=== PATIENT | male | born 1970 | race African-American/Black ===

== ENCOUNTER 2018-03-04 10:42 | Inpatient (IN) | payer BC ==
[2018-03-04 11:13] VITALS: BMI 20.5
--- NOTE | 2018-03-04 12:46 | HP ---
COWS - Scale Resting Pulse: 0= TN 80 or Below Sweatin= Chills/Flushing Restless Observation: 1= Difficult to Sit Still Pupil Size: 1= Pupils >than Normal Bone or Joint Aches: 2= Severe Diffuse Aches Runny Nose/ Eye Tearin= Runny Nose/Eyes GI Upset > 30mins: 2= Nausea/Diarrhea Tremor Observation: 2= Slight Tremor Visible Yawning Observation: 1= 1-2x During Session Anxiety or Irritability: 2=Irritable/Anxious Goose Flesh Skin: 0=Smooth Skin COWS Score: 14 CIWA Score Nausea/Vomitin Muscle Tremors: 2 Anxiety: 2 Agitation: 2 Paroxysmal Sweats: 1-Minimal Palms Moist Orientation: 0-Oriented Tacttile Disturbances: 1-Very Mild Itch/Numbness Auditory Disturbances: 1-Very Mild Visual Disturbances: 0-None Headache: 2-Mild CIWA-Ar Total Score: 13 - Admission Criteria OASAS Guidelines: Admission for Medically Managed Detox: Requires at least one of the followin. CIWA greater than 12 2. Seizures within the past 24 hours 3. Delirium tremens within the past 24 hours 4. Hallucinations within the past 24 hours 5. Acute intervention needed for co occurring medical disorder 6. Acute intervention needed for co occurring psychiatric disorder 7. Severe withdrawal that cannot be handled at a lower level of care (continued vomiting, continued diarrhea, abnormal vital signs) requiring intravenous medication and/or fluids 8. Patient presents the following: CIWA greater than 12 Admission Criteria Met: Admission criteria met Admission ROS [facility] Chief Complaint: i need help to stop using heroin,alcohol,cocaine and marijuana Allergies/Adverse Reactions: Allergies Allergy/AdvReac Type Severity Reaction Status Date / Time No Known Drug Allergies Allergy Verified 03/05/18 00:22 Fish Containing Products AdvReac Intermediate Vomiting Verified 03/05/18 00:22 History of Present Illness: this 47 years old male with heroin,alcohol,cocaine and marijuana dependence, seeking detox,withdrawal symptom,last detox 11/24/17 to 11/28/17 seizure syncope hepatitis b nicotine dependence weight loss depression,insomnia,bipolar disorder longest period of sobriety 4 years hiv noncompliance - Ebola screening Have you traveled outside of the country in the last 21 days: No Have you had contact with anyone from an Ebola affected area: No Have you been sick,other than usual withdrawal symptoms: No Do you have a fever: No - Review of Systems Constitutional: Chills, Loss of Appetite, Malaise, Night Sweats, Changes in sleep, Weakness, Unintentional Wgt. Loss EENT: reports: Tearing, Nose Congestion Respiratory: reports: No Symptoms reported Cardiac: reports: No Symptoms Reported GI: reports: Nausea, Poor Appetite, Vomiting, Abdominal cramping : reports: No Symptoms Reported Musculoskeletal: reports: Back Pain, Joint Pain, Muscle Pain, Joint Stiffness Integumentary: reports: Dryness Neuro: reports: No Symptoms reported, Headache, Tremors Endocrine: reports: No Symptoms Reported Hematology: reports: No Symptoms Reported Psychiatric: reports: No Sypmtoms Reported, Judgement Intact, Mood/Affect Appropiate, Orientated x3, Anxious (bipolar disorder), Depressed Patient History - Patient Medical History Hx Anemia: No Hx Asthma: Yes (Pt is on MDI) Hx Chronic Obstructive Pulmonary Disease (COPD): Yes Hx Cancer: No Hx Cardiac Disorders: No Hx Congestive Heart Failure: No Hx Hypertension: No Hx Hypercholesterolemia: No Hx Pacemaker: No HX Cerebrovascular Accident: No Hx Seizures: Yes (11/2016) Hx Dementia: No Hx Diabetes: No Hx Gastrointestinal Disorders: No Hx Liver Disease: No Hx Genitourinary Disorders: No Hx Sexually Transmitted Disorders: No Hx Renal Disease (ESRD): No Hx Thyroid Disease: No Hx Human Immunodeficiency Virus (HIV): Yes (on Triumeq ) Hx Hepatitis C: No Hx Depression: Yes Hx Suicide Attempt: No Hx Bipolar Disorder: No Hx Schizophrenia: No Other Medical History: no suicidal,no homicidal - Patient Surgical History Past Surgical History: No Hx Neurologic Surgery: No Hx Cataract Extraction: No Hx Cardiac Surgery: No Hx Lung Surgery: No Hx Breast Surgery: No Hx Breast Biopsy: No Hx Abdominal Surgery: No Hx Appendectomy: No Hx Cholecystectomy: No Hx Genitourinary Surgery: No Hx Orthopedic Surgery: No Anesthesia Reaction: No - PPD History Previous Implant?: Yes Documented Results: Negative w/proof Implanted On Prior R Admission?: Yes Date: 11/26/17 Results: 0 mm PPD to be Administered?: No - Smoking Cessation Smoking history: Current every day smoker Have you smoked in the past 12 months: Yes Aproximately how many cigarettes per day: 5 Cigars Per Day: 0 Hx Chewing Tobacco Use: No Initiated information on smoking cessation: Yes 'Breaking Loose' booklet given: 03/04/18 - Substance & Tx. History Hx Alcohol Use: Yes Hx Substance Use: Yes Substance Use Type: Alcohol, Cocaine, Heroin, Marijuana Hx Substance Use Treatment: Yes ([facility] 11/24/17 to 11/28/17) - Substances Abused Heroin Route: Inhalation Frequency: Daily Amount used: 1 BUNDLE Age of first use: 24 Date of Last Use: 03/03/18 Crack Route: Smoking Frequency: 3-6 times per week Amount used: $50 Age of first use: 19 Date of Last Use: 03/01/18 Alcohol Route: Smoking Frequency: Daily Amount used: 1 PINT OF KALEB, 5 16 OZ CANS OF BEERS Age of first use: 17 Date of Last Use: 03/03/18 Marijuana/Hashish Route: Smoking Frequency: Daily Amount used: 1/8 OF AN OUNCE Age of first use: 8 Date of Last Use: 03/02/18 Family Disease History - Family Disease History Family Disease History: Diabetes: Grandparent, Other: Father (alcohol,sober) Admission Physical Exam [facility] - Vital Signs Vital Signs: Vital Signs - 24 hr 03/04/18 11:09 Temperature 96.4 F L Pulse Rate 68 Respiratory 16 Rate Blood Pressure 140/94 - Physical General Appearance: Yes: Moderate Distress, Tremorous, Irritable, Sweating, Anxious HEENTM: Yes: Normal ENT Inspection, JACKIE, Pharynx Normal Respiratory: Yes: Lungs Clear, Normal Breath Sounds, No Respiratory Distress Neck: Yes: Within Normal Limits, No masses,lesions,Nodules, Supple, Trachea in good position Breast: Yes: Within Normal Limits Cardiology: Yes: Within Normal Limits, Regular Rhythm, Regular Rate, S1, S2 Abdominal: Yes: Within Normal Limits, Normal Bowel Sounds, Non Tender, Soft Genitourinary: Yes: Within Normal Limits Back: Yes: Normal Inspection, Muscle Spasm Musculoskeletal: Yes: full range of Motion, Back pain, Muscle Pain Extremities: Yes: Within Normal Limits, Normal Range of Motion, Tremors 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 NML intact, Alert, Motor Strength 5/5 Integumentary: Yes: Dry Lymphatic: Yes: Within Normal Limits - Diagnostic (1) Opioid dependence with withdrawal Current Visit: No Status: Acute (2) Alcohol dependence with withdrawal, uncomplicated Current Visit: No Status: Acute (3) Cocaine dependence Current Visit: No Status: Acute Qualifiers: Substance use status: uncomplicated Qualified Code(s): F14.20 - Cocaine dependence, uncomplicated (4) Marijuana dependence Current Visit: No Status: Chronic (5) Weight loss Current Visit: No Status: Acute (6) Asthma Current Visit: No Status: Chronic Qualifiers: Asthma severity: mild persistent Asthma complication type: with status asthmaticus (7) HIV (human immunodeficiency virus infection) Current Visit: No Status: Chronic Comment: ATRIPLA (8) Nicotine dependence Current Visit: No Status: Chronic Qualifiers: Nicotine product type: cigarettes Substance use status: uncomplicated Qualified Code(s): F17.210 - Nicotine dependence, cigarettes, uncomplicated (9) Seizure Current Visit: No Status: Chronic Comment: KEPPRA LEVEL PENDING (10) Bipolar disorder Current Visit: Yes Status: Acute Cleared for Admission [facility] - Detox or Rehab S Level of Care: Medically Managed Detox Regimen/Protocol: Methadone/Librium [facility] Breath Alcohol Content Breath Alcohol Content: 0 Urine Drug Screen - Results Drug Screen Negative: No Urine Drug Screen Results: THC-Marijuana, OPI-Opiates, OXY-Oxycodone, FEN- Fentanyl
[2018-03-04] MEDS ORDERED: MAGNESIUM CITRATE 300 ML BOTTLE PO PRN (13:05)
[2018-03-04] MEDS ORDERED: LOPERAMIDE HCL 2 MG CAPSULE PO PRN (13:05)
[2018-03-04] MEDS ORDERED: MAG HYDROX/AL HYDROX/SIMETH 30 ML UNIT-DOSE CUP PO PRN (13:05)
[2018-03-04] MEDS ORDERED: IBUPROFEN 400 MG TABLET (FP) PO PRN (13:05)
[2018-03-04] MEDS ORDERED: ACETAMINOPHEN 325 MG TABLET (FP) PO PRN (13:05)
[2018-03-04] MEDS ORDERED: MENTHOL/PHENOL 1 EACH UD MM PRN (13:05)
[2018-03-04] MEDS ORDERED: guaiFENesin/D-METHORPHAN HB 10 ML UNIT-DOSE CUPS PO PRN (13:05)
[2018-03-04] MEDS ORDERED: P-EPHED 60MG/TRIPROLIDI 2.5MG TABLET PO PRN (13:05)
[2018-03-04] MEDS ORDERED: MAGNESIUM HYDROX 2400MG/30ML ORAL SUSPENSION 30 ML CUP PO PRN (13:05)
[2018-03-04] MEDS ORDERED: ALBUTEROL SO4 8 GM HFA INHALER IH PRN (13:09)
[2018-03-04] MEDS ORDERED: METHADONE HCL 10 MG TABLET (FOR DETOX USE ONLY) PO ONE ×2 (13:25→23:00)
[2018-03-04] MEDS: NICOTINE 14 MG/24 HOURS TOPICAL PATCH TD SCH (14:46)
--- NOTE | 2018-03-04 17:33 | PN ---
[facility] Progress Note Note: Psychiatric nurse practitioner note: Unable to complete psychiatric consultation due to patient falling asleep during assessment. Psychiatric consultation deferred.
[2018-03-04] MEDS: chlordiazePOXIDE HCL 25 MG CAPSULE PO SCH ×2 (17:47→22:43)
[2018-03-04] MEDS ORDERED: MELATONIN 5 MG TABLETS PO PRN (22:00)
[2018-03-04] MEDS: levETIRAcetam 500 MG TABLET (FP) PO SCH (22:43)
[2018-03-04] MEDS: THIAMINE HCL 100 MG TABLET (FP) PO SCH (22:44)
[2018-03-04] MEDS: BUDESONIDE/FORMETEROL FUMARATE 80/4.5 mcg INHALER IH SCH (22:45)
--- NOTE | 2018-03-04 23:54 | PN ---
[facility] Progress Note Note: ASKED TO SEE CLIENT FOR INJURY TO R FOOT. CLIENT STATES HE HIT HIS R FOURTH TOE ON THE CORNER OF A DOOR. NOW WITH C/O PAIN 7/10, SWELLING AND DECREASE MOVEMENT. R FOOT- 4TH DIGIT NOTED WITH SWELLING, TENDER TO TOUCH WITH LIMITED ROM Last Vital Signs Temp Pulse Resp BP Pulse Ox 97.5 F L 77 18 127/74 03/04/18 23:30 03/04/18 23:30 03/04/18 23:30 03/04/18 23:30 R FOOT 4 TH DIGIT INJURY P- MOTRIN ICE COMPRESS TRANSFER TO [facility] FOR XRAY OF R 4TH TOE OF RIGHT FOOT UNSUCCESSFUL ATTEMPT TO ENDORSE CLIENT TO [facility]
[2018-03-05 00:04] LABS: URINE APPEARANCE CLEAR; URINE BILIRUBIN NEGATIVE (<2.0 mg/dL); URINE COLOR LTYELLOW; URINE GLUCOSE (UA) NEGATIVE (NEGATIVE); URINE KETONE NEGATIVE (NEGATIVE); URINE LEUK ESTERASE NEGATIVE (NEGATIVE); URINE NITRITE NEGATIVE (NEGATIVE); URINE PROTEIN NEGATIVE (NEGATIVE); URINE UROBILINOGEN NEGATIVE mg/dL (0.2-1.0)
[2018-03-05] MEDS: chlordiazePOXIDE HCL 25 MG CAPSULE PO SCH ×4 (05:29→22:28)
--- NOTE | 2018-03-05 07:35 | PN ---
[facility] Progress Note Note: RETURNS FROM [facility] AFTER EVAL OF R FOOT 4TH TOE PAIN AFTER INJURY FX OF TOE NOTED. MOTRIN/TYLENOL FOR PAIN CANE FOR ASSIST WITH AMBULATION Medical Decision Making - Medical Decision Making 03/05/18 01:53 XR findings d/w patient. Toes were yoselin taped and a hard-soled shoe placed. Stable for DC and transfer back to [facility]. <Marisa Nuñez - Last Filed: 03/05/18 01:54> *DC/Admit/Observation/Transfer - Attestations Scribe Attestion: 03/05/18 01:02 Documentation prepared by Kayy Arcos, acting as medical hospital sales for Marisa Nuñez MD. <Kayy Arcos - Last Filed: 03/05/18 01:03> - Discharge Dispostion Decision to Admit order: No <Marisa Nuñez - Last Filed: 03/05/18 01:54> Diagnosis at time of Disposition: Toe fracture Qualifiers: Encounter type: initial encounter Toe: lesser toe Fracture type: closed Phalanx : proximal Fracture alignment: nondisplaced Laterality: right Qualified Code(s) : S92.514A - Nondisplaced fracture of proximal phalanx of right lesser toe(s), initial encounter for closed fracture - Discharge Dispostion Disposition: HOME Condition at time of disposition: Stable - Referrals Referrals: Kelly Cross DO [Primary Care Provider] - - Patient Instructions Printed Discharge Instructions: DI for Toe Fracture - Post Discharge Activity
[2018-03-05] MEDS: chlordiazePOXIDE HCL 25 MG CAPSULE PO PRN ×2 (08:40→14:51)
--- NOTE | 2018-03-05 09:55 | CONSULT ---
[facility] Psychiatric Consult - Data Date of interview: 03/05/18 Admission source: Self-referred Identifying data: Mr Bush is a 47 years old single Black male, father of 3 childre,.unemployed on [employer], domiciled seeking detox treatment for alcohol, opioid, cocaine and cannabis Substance Abuse History: Reports history of alcohol, heroin, cocaine and marijuana use. Refer to addiction counselor's summary for further information. Medical History: Significant for COPD/bronchial asthma, HIV infection, seizure disorder (on keppra), hepatitis B and arthritis. Smokes 5 cigarettes daily Psychiatric History: Reports being diagnosed with Bipolar Disorder and has had 3 previous psychiatric hospitaalizations at [facility], most recently more than 5 years ago. Reports receiving psychiatric services at [facility] and he is prescribed Seroquel 30 mg po BID, Zoloft 50 mg po daily and Ambien 10 mg po HS. According to Pharmacy claims, most recent scripts were for Ambien 10 mg#30 by Rodriguez Batista filled on 01/03/18 and Seroquel 100 mg #30, Remeron 15 mg #30, Zoloft 50 mg #30 by [facility] Espinoza filled on 11/29/17 when he was last in detox in this facility. [facility] x1 by OD in 1996. At present, patient is extremely irritable, reports feeling anxious and sleeping poorly and sleeping poorly Physical/Sexual Abuse/Trauma History: Denies Additional Comment: Reports history of 2 previous arrests iincluding felony convictions on charges of assault in 2003 and drug in . No probation.parole Mental Status Exam - Mental Status Exam Alert and Oriented to: Time, Place, Person Cognitive Function: Fair Patient Appearance: Well Groomed Mood: Anxious, Irritable Affect: Appropriate Speech Pattern: Garbled Voice Loudness: Normal Thought Process: Intact, Goal Oriented Thought Disorder: Not Present Suicidal Ideation: Denies Homicidal Ideation: Denies Insight/Judgement: Fair Sleep: Poorly Appetite: Poor Muscle strength/Tone: Normal Gait/Station: Normal Psychiatric Findings - Problem List (Lyman 1, 2,3) (1) Bipolar disorder Current Visit: No Status: Chronic (2) Substance induced mood disorder Current Visit: Yes Status: Acute (3) Substance-induced sleep disorder Current Visit: No Status: Acute (4) Alcohol dependence with withdrawal, uncomplicated Current Visit: No Status: Acute (5) Opioid dependence with withdrawal Current Visit: No Status: Acute (6) Cocaine dependence Current Visit: No Status: Acute Qualifiers: Substance use status: uncomplicated Qualified Code(s): F14.20 - Cocaine dependence, uncomplicated (7) Cannabis dependence Current Visit: Yes Status: Acute (8) Nicotine dependence Current Visit: No Status: Chronic Qualifiers: Nicotine product type: cigarettes Substance use status: uncomplicated Qualified Code(s): F17.210 - Nicotine dependence, cigarettes, uncomplicated (9) Toe fracture Current Visit: No Status: Acute Qualifiers: Encounter type: initial encounter Toe: lesser toe Fracture type: closed Phalanx: proximal Fracture alignment: nondisplaced Laterality: right Qualified Code(s): S92.514A - Nondisplaced fracture of proximal phalanx of right lesser toe(s), initial encounter for closed fracture (10) Asthma Current Visit: No Status: Chronic Qualifiers: Asthma severity: mild persistent Asthma complication type: with status asthmaticus (11) HIV (human immunodeficiency virus infection) Current Visit: No Status: Chronic Comment: ATRIPLA (12) Seizure Current Visit: No Status: Chronic Comment: KEPPRA LEVEL PENDING - Initial Treatment Plan Initial Treatment Plan: 1) Start Seroquel 100 mg po HS, Zoloft 50 mg po daily. 2) Continue inpatient detoxification
[2018-03-05] MEDS ORDERED: METHADONE HCL 10 MG TABLET (FOR DETOX USE ONLY) PO SCH (10:00)
--- NOTE | 2018-03-05 10:07 | PN ---
[facility] CIWA - CIWA Score Nausea/Vomitin-No Nausea/No Vomiting Muscle Tremors: 4-Moderate,w/Arms Extend Anxiety: 3 Agitation: 3 Paroxysmal Sweats: 3 Orientation: 0-Oriented Tacttile Disturbances: 0-None Auditory Disturbances: 0-None Visual Disturbances: 0-None Headache: 0-None Present CIWA-Ar Total Score: 13 [facility] COWS - Scale Resting Pulse: 0= [place] 80 or Below Sweatin=Flushed/Facial Moisture Restless Observation: 1= Difficult to Sit Still Pupil Size: 0= Normal to Room Light Bone or Joint Aches: 2= Severe Diffuse Aches Runny Nose/ Eye Tearin= Nasal Congestion GI Upset > 30mins: 0= None Tremor Observation of Outstretched Hands: 2= Slight Tremor Visible Yawning Observation: 1= 1-2x During Session Anxiety or Irritability: 1=Feels Anxious/Irritable Goose Flesh Skin: 0=Smooth Skin COWS Score: 10 [facility] Progress Note (SOAP) Subjective: agitation sweats mild shakes irritable some toe pain/discomfort Objective: 03/05/18 10:15 Laboratory Tests 03/04/18 23:45 Urine Color Ltyellow Urine Appearance Clear Urine pH 6.0 Ur Specific [place] 1.023 Urine Protein Negative Urine Glucose (UA) Negative Urine Ketones Negative Urine Blood Negative Urine Nitrite Negative Urine Bilirubin Negative Urine Urobilinogen Negative Ur Leukocyte Esterase Negative rest of labs were drawn at [facility]; results are pending aax3 ambulating with cane and boot. pt is walking safely no acute distress Assessment: 03/05/18 10:15 withdrawals sx Plan: continue detox increase fluids
[2018-03-05] MEDS: NICOTINE 14 MG/24 HOURS TOPICAL PATCH TD SCH (10:16)
[2018-03-05] MEDS: BUDESONIDE/FORMETEROL FUMARATE 80/4.5 mcg INHALER IH SCH ×2 (10:16→22:28)
[2018-03-05] MEDS: levETIRAcetam 500 MG TABLET (FP) PO SCH ×2 (10:16→22:28)
[2018-03-05] MEDS: PRENATAL VITAMINS W/ FOLIC ACID TABLET (FP) PO SCH (10:16)
[2018-03-05 10:24] LABS: HEMATOCRIT 36.1 % (35.4-49); HEMOGLOBIN 12.6 GM/dL (11.7-16.9); MCH 31.3 pg (25.7-33.7); MCHC 34.9 g/dl (32.0-35.9); MEAN CELL VOLUME 89.6 fl (80-96); PLATELET COUNT 217 K/MM3 (134-434); RBC 4.03 M/mm3 (4.00-5.60); RDW 14.1 % (11.9-15.9); WHITE BLOOD COUNT 3.5 K/mm3 (4.0-10.0)
[2018-03-05 10:46] LABS: ALBUMIN 3.8 g/dl (3.4-5.0); ALK PHOS 79 U/L (45-117); ANION GAP 10 MMOL/L (8-16); BILIRUBIN,TOTAL 0.4 mg/dL (0.2-1); BLOOD UREA NITROGEN 24 mg/dL (7-18); CALCIUM 8.6 mg/dL (8.5-10.1); CHLORIDE 102 mmol/L (98-107); CO2 28 mmol/L (21-32); CREATININE 1.4 mg/dL (0.55-1.3); GLUCOSE,RANDOM 83 mg/dL (74-106); POTASSIUM 3.9 mmol/L (3.5-5.1); SGOT/AST 26 U/L (15-37); SGPT/ALT 27 U/L (13-61); SODIUM 140 mmol/L (136-145)
[2018-03-05] MEDS: SERTRALINE HCL 50 MG TABLET (FP) PO SCH (10:58)
[2018-03-05] MEDS ORDERED: FLU VACCINE QUAD 60 MCG/0.5 ML (MDV 18-19) IM ONE (12:00)
[2018-03-05] MEDS: IBUPROFEN 400 MG TABLET (FP) PO PRN ×2 (14:50→22:28)
[2018-03-05] MEDS: QUEtiapine FUMARATE 100 MG TABLET (FP) PO SCH (22:28)
[2018-03-05] MEDS: THIAMINE HCL 100 MG TABLET (FP) PO SCH (22:28)
[2018-03-06] MEDS: chlordiazePOXIDE HCL 25 MG CAPSULE PO SCH ×2 (07:02→10:05)
[2018-03-06] MEDS: IBUPROFEN 400 MG TABLET (FP) PO PRN (07:02)
[2018-03-06] MEDS: levETIRAcetam 500 MG TABLET (FP) PO SCH ×2 (10:05→23:51)
[2018-03-06] MEDS: NICOTINE 14 MG/24 HOURS TOPICAL PATCH TD SCH (10:05)
[2018-03-06] MEDS: METHADONE HCL 5 MG TABLET (FOR DETOX USE ONLY) PO SCH (10:05)
[2018-03-06] MEDS: SERTRALINE HCL 50 MG TABLET (FP) PO SCH (10:05)
[2018-03-06] MEDS: BUDESONIDE/FORMETEROL FUMARATE 80/4.5 mcg INHALER IH SCH ×2 (10:05→23:51)
[2018-03-06] MEDS: PRENATAL VITAMINS W/ FOLIC ACID TABLET (FP) PO SCH (10:05)
--- NOTE | 2018-03-06 12:08 | PN ---
[facility] CIWA - CIWA Score Nausea/Vomitin-No Nausea/No Vomiting Muscle Tremors: 3 Anxiety: 3 Agitation: 3 Paroxysmal Sweats: 3 Orientation: 0-Oriented Tacttile Disturbances: 0-None Auditory Disturbances: 0-None Visual Disturbances: 0-None Headache: 0-None Present CIWA-Ar Total Score: 12 [facility] COWS - Scale Resting Pulse: 0= [place] 80 or Below Sweatin=Flushed/Facial Moisture Restless Observation: 1= Difficult to Sit Still Pupil Size: 0= Normal to Room Light Bone or Joint Aches: 2= Severe Diffuse Aches Runny Nose/ Eye Tearin= Runny Nose/Eyes GI Upset > 30mins: 0= None Tremor Observation of Outstretched Hands: 1= Tremor [place], Not Seen Yawning Observation: 0= None Anxiety or Irritability: 2=Irritable/Anxious Goose Flesh Skin: 0=Smooth Skin COWS Score: 10 S Progress Note (SOAP) Subjective: shakes sweats chills toe pain/discomfort interrupted sleep irritable Objective: 03/06/18 12:06 Vital Signs Temperature 98.3 F 03/06/18 09:19 Pulse Rate 79 03/06/18 09:19 Respiratory Rate 18 03/06/18 09:19 Blood Pressure 111/62 03/06/18 09:19 O2 Sat by Pulse Oximetry (%) Laboratory Tests 03/04/18 03/05/18 03/05/18 23:45 05:40 05:40 WBC 3.5 L RBC 4.03 Hgb 12.6 Hct 36.1 MCV 89.6 MCH 31.3 MCHC 34.9 RDW 14.1 Plt Count 217 D MPV 9.0 Sodium 140 Potassium 3.9 Chloride 102 Carbon Dioxide 28 Anion Gap 10 BUN 24 H Creatinine 1.4 H Creat Clearance w eGFR 54.09 Random Glucose 83 Calcium 8.6 Total Bilirubin 0.4 AST 26 ALT 27 Alkaline Phosphatase 79 Total Protein 8.0 Albumin 3.8 Urine Color Ltyellow Urine Appearance Clear Urine pH 6.0 Ur Specific [place] 1.023 Urine Protein Negative Urine Glucose (UA) Negative Urine Ketones Negative Urine Blood Negative Urine Nitrite Negative Urine Bilirubin Negative Urine Urobilinogen Negative Ur Leukocyte Esterase Negative RPR Titer 03/05/18 05:40 WBC RBC Hgb Hct MCV MCH MCHC RDW Plt Count MPV Sodium Potassium Chloride Carbon Dioxide Anion Gap BUN Creatinine Creat Clearance w eGFR Random Glucose Calcium Total Bilirubin AST ALT Alkaline Phosphatase Total Protein Albumin Urine Color Urine Appearance Urine pH Ur Specific [place] Urine Protein Urine Glucose (UA) Urine Ketones Urine Blood Urine Nitrite Urine Bilirubin Urine Urobilinogen Ur Leukocyte Esterase RPR Titer Nonreactive aaox3 ambulating no acute distress Assessment: 03/06/18 12:07 withdrawal sx Plan: continue detox increase fluids motrin 800mg prn encouraged keep leg with foot boot elevated.
[2018-03-06] MEDS: chlordiazePOXIDE 5 MG CAPSULE PO SCH ×2 (21:31→23:50)
--- NOTE | 2018-03-06 21:32 | PN ---
[facility] Progress Note Note: Patient is confused. Patient is not oriented to place and time. On assessment, patient states that the name of the President is Mr. James and does not remember the time. Laboratory Last Values WBC 3.5 K/mm3 (4.0-10.0) L 03/05/18 05:40 RBC 4.03 M/mm3 (4.00-5.60) 03/05/18 05:40 Hgb 12.6 GM/dL (11.7-16.9) 03/05/18 05:40 Hct 36.1 % (35.4-49) 03/05/18 05:40 MCV 89.6 fl (80-96) 03/05/18 05:40 MCH 31.3 pg (25.7-33.7) 03/05/18 05:40 MCHC 34.9 g/dl (32.0-35.9) 03/05/18 05:40 RDW 14.1 % (11.9-15.9) 03/05/18 05:40 Plt Count 217 K/MM3 (134-434) D 03/05/18 05:40 MPV 9.0 fl (7.5-11.1) 03/05/18 05:40 Sodium 140 mmol/L (136-145) 03/05/18 05:40 Potassium 3.9 mmol/L (3.5-5.1) 03/05/18 05:40 Chloride 102 mmol/L (98-107) 03/05/18 05:40 Carbon Dioxide 28 mmol/L (21-32) 03/05/18 05:40 Anion Gap 10 MMOL/L (8-16) 03/05/18 05:40 BUN 24 mg/dL (7-18) H 03/05/18 05:40 Creatinine 1.4 mg/dL (0.55-1.3) H 03/05/18 05:40 Creat Clearance w eGFR 54.09 (>60) 03/05/18 05:40 Random Glucose 83 mg/dL (74-106) 03/05/18 05:40 Calcium 8.6 mg/dL (8.5-10.1) 03/05/18 05:40 Total Bilirubin 0.4 mg/dL (0.2-1) 03/05/18 05:40 AST 26 U/L (15-37) 03/05/18 05:40 ALT 27 U/L (13-61) 03/05/18 05:40 Alkaline Phosphatase 79 U/L (45-117) 03/05/18 05:40 Total Protein 8.0 g/dl (6.4-8.2) 03/05/18 05:40 Albumin 3.8 g/dl (3.4-5.0) 03/05/18 05:40 Urine Color Ltyellow 03/04/18 23:45 Urine Appearance Clear 03/04/18 23:45 Urine pH 6.0 (5.0-8.0) 03/04/18 23:45 Ur Specific [place] 1.023 (1.010-1.035) 03/04/18 23:45 Urine Protein Negative (NEGATIVE) 03/04/18 23:45 Urine Glucose (UA) Negative (NEGATIVE) 03/04/18 23:45 Urine Ketones Negative (NEGATIVE) 03/04/18 23:45 Urine Blood Negative (NEGATIVE) 03/04/18 23:45 Urine Nitrite Negative (NEGATIVE) 03/04/18 23:45 Urine Bilirubin Negative (<2.0 mg/dL) 03/04/18 23:45 Urine Urobilinogen Negative mg/dL (0.2-1.0) 03/04/18 23:45 Ur Leukocyte Esterase Negative (NEGATIVE) 03/04/18 23:45 RPR Titer Nonreactive (NONREACTIVE) 03/05/18 05:40 Action: Ammonia level ordered.
[2018-03-06] MEDS: THIAMINE HCL 100 MG TABLET (FP) PO SCH (23:51)
[2018-03-06] MEDS: QUEtiapine FUMARATE 100 MG TABLET (FP) PO SCH (23:51)
[2018-03-07] MEDS: chlordiazePOXIDE 5 MG CAPSULE PO SCH ×2 (06:48→10:50)
--- NOTE | 2018-03-07 12:34 | PN ---
[facility] Progress Note Note: pt assessed, he is a bit more lucid he responded appropriately and stated his name and where he is at this time and place. however pt ammonia level is high ( 101.50) laculose ordered pt agreed to treatment. will reassess and repeat level tomorrow.
--- NOTE | 2018-03-07 12:38 | PN ---
[facility] Progress Note (SOAP) Subjective: sleepy groggy tired Objective: 03/07/18 12:36 Vital Signs Temperature 97.7 F 03/07/18 09:37 Pulse Rate 87 03/07/18 09:37 Respiratory Rate 16 03/07/18 09:37 Blood Pressure 117/51 L 03/07/18 09:37 O2 Sat by Pulse Oximetry (%) Laboratory Tests 03/04/18 03/05/18 03/05/18 23:45 05:40 05:40 WBC 3.5 L RBC 4.03 Hgb 12.6 Hct 36.1 MCV 89.6 MCH 31.3 MCHC 34.9 RDW 14.1 Plt Count 217 D MPV 9.0 Sodium 140 Potassium 3.9 Chloride 102 Carbon Dioxide 28 Anion Gap 10 BUN 24 H Creatinine 1.4 H Creat Clearance w eGFR 54.09 Random Glucose 83 Calcium 8.6 Total Bilirubin 0.4 AST 26 ALT 27 Alkaline Phosphatase 79 Ammonia Total Protein 8.0 Albumin 3.8 Urine Color Ltyellow Urine Appearance Clear Urine pH 6.0 Ur Specific [place] 1.023 Urine Protein Negative Urine Glucose (UA) Negative Urine Ketones Negative Urine Blood Negative Urine Nitrite Negative Urine Bilirubin Negative Urine Urobilinogen Negative Ur Leukocyte Esterase Negative RPR Titer 03/05/18 03/07/18 05:40 07:50 WBC RBC Hgb Hct MCV MCH MCHC RDW Plt Count MPV Sodium Potassium Chloride Carbon Dioxide Anion Gap BUN Creatinine Creat Clearance w eGFR Random Glucose Calcium Total Bilirubin AST ALT Alkaline Phosphatase Ammonia 101.50 H Total Protein Albumin Urine Color Urine Appearance Urine pH Ur Specific [place] Urine Protein Urine Glucose (UA) Urine Ketones Urine Blood Urine Nitrite Urine Bilirubin Urine Urobilinogen Ur Leukocyte Esterase RPR Titer Nonreactive ammonia level result noted laculose ordered fluids encouraged awake/responsive/no confusion noted Assessment: 03/07/18 12:37 no withdrawals noted Plan: increase fluids laculose ordered repeat labs ordered hold detox medication for now
[2018-03-07] MEDS ORDERED: LACTULOSE 20 GM/30 ML UDC (FOR ORAL USE ONLY) PO ONE (13:00)
[2018-03-07] MEDS: LACTULOSE 20 GM/30 ML UDC (FOR ORAL USE ONLY) PO SCH ×3 (13:06→22:39)
[2018-03-07] MEDS: METHADONE HCL 5 MG TABLET (FOR DETOX USE ONLY) PO SCH (13:07)
[2018-03-07] MEDS: PRENATAL VITAMINS W/ FOLIC ACID TABLET (FP) PO SCH (13:07)
[2018-03-07] MEDS: levETIRAcetam 500 MG TABLET (FP) PO SCH ×2 (13:07→22:38)
[2018-03-07] MEDS: SERTRALINE HCL 50 MG TABLET (FP) PO SCH (13:07)
[2018-03-07] MEDS: BUDESONIDE/FORMETEROL FUMARATE 80/4.5 mcg INHALER IH SCH ×2 (13:08→22:37)
[2018-03-07] MEDS: NICOTINE 14 MG/24 HOURS TOPICAL PATCH TD SCH (13:09)
[2018-03-07] MEDS: THIAMINE HCL 100 MG TABLET (FP) PO SCH (22:37)
[2018-03-07] MEDS: IBUPROFEN 400 MG TABLET (FP) PO PRN (22:38)
[2018-03-08] MEDS ORDERED: METHADONE HCL 10 MG TABLET (FOR DETOX USE ONLY) PO SCH (10:00)
[2018-03-08] MEDS: BUDESONIDE/FORMETEROL FUMARATE 80/4.5 mcg INHALER IH SCH ×2 (10:06→22:36)
[2018-03-08] MEDS: levETIRAcetam 500 MG TABLET (FP) PO SCH ×2 (10:06→22:36)
[2018-03-08] MEDS: LACTULOSE 20 GM/30 ML UDC (FOR ORAL USE ONLY) PO SCH ×4 (10:06→22:36)
[2018-03-08] MEDS: SERTRALINE HCL 50 MG TABLET (FP) PO SCH (10:06)
[2018-03-08] MEDS: PRENATAL VITAMINS W/ FOLIC ACID TABLET (FP) PO SCH (10:07)
[2018-03-08] MEDS: NICOTINE 14 MG/24 HOURS TOPICAL PATCH TD SCH (10:08)
--- NOTE | 2018-03-08 10:40 | PN ---
[facility] Progress Note (SOAP) Subjective: feeling better no gi distress no tremor less sweat sleep better at night talking about aftercare with staff Objective: 03/08/18 10:39 Vital Signs Temperature 97.3 F L 03/08/18 09:32 Pulse Rate 71 03/08/18 09:32 Respiratory Rate 18 03/08/18 09:32 Blood Pressure 127/85 03/08/18 09:32 O2 Sat by Pulse Oximetry (%) Laboratory Last Values WBC 3.5 K/mm3 (4.0-10.0) L 03/05/18 05:40 RBC 4.03 M/mm3 (4.00-5.60) 03/05/18 05:40 Hgb 12.6 GM/dL (11.7-16.9) 03/05/18 05:40 Hct 36.1 % (35.4-49) 03/05/18 05:40 MCV 89.6 fl (80-96) 03/05/18 05:40 MCH 31.3 pg (25.7-33.7) 03/05/18 05:40 MCHC 34.9 g/dl (32.0-35.9) 03/05/18 05:40 RDW 14.1 % (11.9-15.9) 03/05/18 05:40 Plt Count 217 K/MM3 (134-434) D 03/05/18 05:40 MPV 9.0 fl (7.5-11.1) 03/05/18 05:40 Sodium 140 mmol/L (136-145) 03/05/18 05:40 Potassium 3.9 mmol/L (3.5-5.1) 03/05/18 05:40 Chloride 102 mmol/L (98-107) 03/05/18 05:40 Carbon Dioxide 28 mmol/L (21-32) 03/05/18 05:40 Anion Gap 10 MMOL/L (8-16) 03/05/18 05:40 BUN 24 mg/dL (7-18) H 03/05/18 05:40 Creatinine 1.4 mg/dL (0.55-1.3) H 03/05/18 05:40 Creat Clearance w eGFR 54.09 (>60) 03/05/18 05:40 Random Glucose 83 mg/dL (74-106) 03/05/18 05:40 Calcium 8.6 mg/dL (8.5-10.1) 03/05/18 05:40 Total Bilirubin 0.4 mg/dL (0.2-1) 03/05/18 05:40 AST 26 U/L (15-37) 03/05/18 05:40 ALT 27 U/L (13-61) 03/05/18 05:40 Alkaline Phosphatase 79 U/L (45-117) 03/05/18 05:40 Ammonia 101.50 umol/L (11-32) H 03/07/18 07:50 Total Protein 8.0 g/dl (6.4-8.2) 03/05/18 05:40 Albumin 3.8 g/dl (3.4-5.0) 03/05/18 05:40 Urine Color Ltyellow 03/04/18 23:45 Urine Appearance Clear 03/04/18 23:45 Urine pH 6.0 (5.0-8.0) 03/04/18 23:45 Ur Specific [place] 1.023 (1.010-1.035) 03/04/18 23:45 Urine Protein Negative (NEGATIVE) 03/04/18 23:45 Urine Glucose (UA) Negative (NEGATIVE) 03/04/18 23:45 Urine Ketones Negative (NEGATIVE) 03/04/18 23:45 Urine Blood Negative (NEGATIVE) 03/04/18 23:45 Urine Nitrite Negative (NEGATIVE) 03/04/18 23:45 Urine Bilirubin Negative (<2.0 mg/dL) 03/04/18 23:45 Urine Urobilinogen Negative mg/dL (0.2-1.0) 03/04/18 23:45 Ur Leukocyte Esterase Negative (NEGATIVE) 03/04/18 23:45 RPR Titer Nonreactive (NONREACTIVE) 03/05/18 05:40 lab noted Assessment: 03/08/18 10:39 mild withdrawal sx Plan: medically supervised detox
[2018-03-08] MEDS: chlordiazePOXIDE HCL 10 MG CAPSULE PO SCH ×3 (11:08→23:11)
[2018-03-08] MEDS: IBUPROFEN 400 MG TABLET (FP) PO PRN (20:24)
[2018-03-08] MEDS: THIAMINE HCL 100 MG TABLET (FP) PO SCH (22:36)
[2018-03-08] MEDS: QUEtiapine FUMARATE 100 MG TABLET (FP) PO SCH (23:12)
[2018-03-09] MEDS: IBUPROFEN 400 MG TABLET (FP) PO PRN (05:35)
[2018-03-09] MEDS ORDERED: METHADONE HCL 5 MG TABLET (FOR DETOX USE ONLY) PO SCH (06:00)
[2018-03-09] MEDS: chlordiazePOXIDE HCL 10 MG CAPSULE PO SCH (06:08)
[2018-03-09 09:13] VITALS: BP 112/65; PULSE 81; TEMP 97.7
--- NOTE | 2018-03-09 09:15 | DS ---
[facility] Detox Discharge Summary Admission Date: 03/04/18 Discharge Date: 03/09/18 - History Present History: Alcohol Dependence, Cannabis Dependence, Cocaine Dependence, Opioid Dependence - Physical Exam Results Vital Signs: Vital Signs Temperature 97.3 F L 03/09/18 06:00 Pulse Rate 74 03/09/18 06:00 Respiratory Rate 18 03/09/18 06:00 Blood Pressure 124/80 03/09/18 06:00 O2 Sat by Pulse Oximetry (%) - Treatment Hospital Course: Detox Protocol Followed, Detoxed Safely, Responded well, Discharged Condition Good, Rehab Referral Accepted - Medication Discharge Medications: Ambulatory Orders Abacavir/Dolutegravir/Lamivudi [Triumeq 600-50-300 mg Tablet] 1 tab PO HS Dronabinol 10 mg PO DAILY PRN 11/24/17 Quetiapine Fumarate [Seroquel -] 300 mg PO BID 11/24/17 Zolpidem Tartrate [Ambien] 10 mg PO HS 11/24/17 Mirtazapine [Remeron -] 15 mg PO HS #30 tablet 11/28/17 Sertraline HCl [Zoloft -] 50 mg PO DAILY #30 tablet 11/28/17 Abacavir/Dolutegravir/Lamivudi [Triumeq 600-50-300 mg Tablet] 1 tablet PO HS Albuterol Sulfate Inhaler - [Ventolin HFA Inhaler -] 2 inh IH Q4H PRN #1 inhaler 03/08/18 Budesonide/Formeterol Fumarate [SYMBICORT 80/4.5mcg -] 2 puff IH BID #1 inhaler 03/08/18 Lactulose (Oral Use) [Cephulac -] 20 gm PO QID #90 udc 03/08/18 levETIRAcetam [Keppra -] 500 mg PO BID #60 tablet 03/08/18 - Diagnosis (1) Bipolar disorder Current Visit: Yes Status: Chronic (2) Cannabis dependence Current Visit: Yes Status: Chronic (3) Substance induced mood disorder Current Visit: Yes Status: Acute (4) Alcohol dependence with withdrawal, uncomplicated Current Visit: Yes Status: Chronic (5) Cocaine dependence Current Visit: Yes Status: Chronic Qualifiers: Substance use status: uncomplicated Qualified Code(s): F14.20 - Cocaine dependence, uncomplicated (6) Opioid dependence with withdrawal Current Visit: Yes Status: Chronic (7) Substance-induced sleep disorder Current Visit: Yes Status: Acute (8) Toe fracture Current Visit: No Status: Acute Qualifiers: Encounter type: initial encounter Toe: lesser toe Fracture type: closed Phalanx: proximal Fracture alignment: nondisplaced Laterality: right Qualified Code(s): S92.514A - Nondisplaced fracture of proximal phalanx of right lesser toe(s), initial encounter for closed fracture (9) Weight loss Current Visit: No Status: Acute (10) Arthritis Current Visit: No Status: Chronic (11) Asthma Current Visit: No Status: Chronic Qualifiers: Asthma severity: mild persistent Asthma complication type: with status asthmaticus (12) Bipolar 1 disorder, depressed Current Visit: No Status: Chronic (13) Bipolar disorder Current Visit: No Status: Chronic (14) COPD (chronic obstructive pulmonary disease) Current Visit: Yes Status: Chronic Qualifiers: COPD type: emphysema Emphysema type: unilateral Qualified Code(s): J43.0 - Unilateral pulmonary emphysema [MacLeod's syndrome] (15) HIV (human immunodeficiency virus infection) Current Visit: Yes Status: Chronic (16) Marijuana dependence Current Visit: No Status: Chronic (17) Nicotine dependence Current Visit: Yes Status: Chronic Qualifiers: Nicotine product type: cigarettes Substance use status: uncomplicated Qualified Code(s): F17.210 - Nicotine dependence, cigarettes, uncomplicated (18) Seizure Current Visit: No Status: Chronic (19) Psychiatric disorder Current Visit: No Status: Suspected - AMA Did Patient Leave Against Medical Advice: No (referred to outpatient)
[2018-03-09] MEDS: levETIRAcetam 500 MG TABLET (FP) PO SCH (10:54)
[2018-03-09] MEDS: LACTULOSE 20 GM/30 ML UDC (FOR ORAL USE ONLY) PO SCH (10:54)
[2018-03-09] MEDS: PRENATAL VITAMINS W/ FOLIC ACID TABLET (FP) PO SCH (10:54)
[2018-03-09] MEDS: SERTRALINE HCL 50 MG TABLET (FP) PO SCH (10:54)
[2018-03-09] MEDS: BUDESONIDE/FORMETEROL FUMARATE 80/4.5 mcg INHALER IH SCH (10:54)
[2018-03-09] MEDS: NICOTINE 14 MG/24 HOURS TOPICAL PATCH TD SCH (10:58)
== END 2018-03-09 13:00 | disposition home or self-care (01) | DRG 773 ==
LOC: YASAS 10:42 → Y6N 13:19
PROVIDERS: ADMIT Neuromusculoskeletal Medicine & OMM; ATTEND Neuromusculoskeletal Medicine & OMM
PROC: HZ2ZZZZ Detoxification Services for Substance Abuse Treatment (ICD-10-PCS; principal; 2018-03-04)
DX: F11.23 Opioid dependence with withdrawal (principal); F10.230 Alcohol dependence with withdrawal, uncomplicated; F14.20 Cocaine dependence, uncomplicated; F12.20 Cannabis dependence, uncomplicated; F17.210 Nicotine dependence, cigarettes, uncomplicated; F31.9 Bipolar disorder, unspecified; F19.24 Other psychoactive substance dependence with psychoactive substance-induced mood disorder; F19.282 Other psychoactive substance dependence with psychoactive substance-induced sleep disorder; M19.90 Unspecified osteoarthritis, unspecified site; J45.909 Unspecified asthma, uncomplicated; J43.0 Unilateral pulmonary emphysema [MacLeod's syndrome]; Z21 Asymptomatic human immunodeficiency virus [HIV] infection status; G40.909 Epilepsy, unspecified, not intractable, without status epilepticus; E72.20 Disorder of urea cycle metabolism, unspecified; Z91.013 Allergy to seafood; S92.514A Nondisplaced fracture of proximal phalanx of right lesser toe(s), initial encounter for closed fracture; W22.8XXA Striking against or struck by other objects, initial encounter; Y93.01 Activity, walking, marching and hiking; Y92.238 Other place in hospital as the place of occurrence of the external cause
CPT/HCPCS: 36415; 80053; 81003; 82140; 85027; 86593; 90688; G0008

== ENCOUNTER 2018-03-05 00:17 | Emergency (ER) | payer BC ==
[2018-03-05 00:25] VITALS: BMI 23.6
[2018-03-05] MEDS ORDERED: ACETAMINOPHEN 325 MG TABLET (FP) PO ONE (00:56)
--- NOTE | 2018-03-05 00:56 | PDOC ---
History of Present Illness - History of Present Illness Initial Comments: This patient is a 47 year old male with PMHx of heroin,alcohol,cocaine and marijuana dependence who was BIBA from detox for right 4th toe injury and sent for x-ray. Patient states that he banged his right 4th toe on the corner of a door. He is now complaining of pain and swelling to that toe. As per note he was given Motrin for the pain as well as ice to reduce swelling and sent here to have an x-ray of the toe. No other current complaints. <Kayy Arcos - Last Filed: 03/05/18 01:03> <Marisa Nuñez - Last Filed: 03/05/18 01:54> - General Chief Complaint: Injury Stated Complaint: RIGHT TOE PAIN Time Seen by Provider: 03/05/18 00:50 Past History <Kayy Arcos - Last Filed: 03/05/18 01:03> - Past Medical History Anemia: No Asthma: Yes (Pt is on MDI) Cancer: No Cardiac Disorders: No CVA: No COPD: Yes CHF: No Dementia: No Diabetes: No GI Disorders: No Disorders: No HTN: No Hypercholesterolemia: No Kidney Stones: No Liver Disease: No Seizures: Yes (11/2016) Thyroid Disease: No - Surgical History Abdominal Surgery: No Appendectomy: No Cardiac Surgery: No Cholecystectomy: No Lung Surgery: No Neurologic Surgery: No Orthopedic Surgery: No - Reproductive History Testicular Surgery: No - Suicide/Smoking/Psychosocial Hx Smoking History: Unknown if ever smoked Have you smoked in the past 12 months: No Number of Cigarettes Smoked Daily: 5 Cigars Per Day: 0 Information on smoking cessation initiated: No 'Breaking Loose' booklet given: 03/04/18 Hx Alcohol Use: Yes Drug/Substance Use Hx: Yes Substance Use Type: Alcohol, Cocaine, Heroin, Marijuana Hx Substance Use Treatment: Yes ([facility] 11/24/17 to 11/28/17) <Marisa Nuñez - Last Filed: 03/05/18 01:54> - Past Medical History Allergies/Adverse Reactions: Allergies Allergy/AdvReac Type Severity Reaction Status Date / Time No Known Drug Allergies Allergy Verified 03/05/18 00:22 Fish Containing Products AdvReac Intermediate Vomiting Verified 03/05/18 00:22 Home Medications: Ambulatory Orders Abacavir/Dolutegravir/Lamivudi [Triumeq Tablet] 1 tab PO HS 11/24/17 Dronabinol 10 mg PO DAILY PRN 11/24/17 Quetiapine Fumarate [Seroquel -] 300 mg PO BID 11/24/17 Zolpidem Tartrate [Ambien] 10 mg PO HS 11/24/17 Budesonide/Formeterol Fumarate [SYMBICORT 80/4.5mcg -] 2 puff IH BID #1 inhaler 11/28/17 Mirtazapine [Remeron -] 15 mg PO HS #30 tablet 11/28/17 Sertraline HCl [Zoloft -] 50 mg PO DAILY #30 tablet 11/28/17 Abacavir/Dolutegravir/Lamivudi [Triumeq 600-50-300 mg Tablet] 1 tablet PO HS Albuterol Sulfate Inhaler - [Ventolin HFA Inhaler -] 2 inh IH Q4H PRN 03/04/18 levETIRAcetam [Keppra -] 500 mg PO BID 03/04/18 Review of Systems - Review of Systems Comments:: GENERAL/CONSTITUTIONAL: No fever or chills. No weakness. HEAD, EYES, EARS, NOSE AND THROAT: No change in vision. No ear pain or discharge. No sore throat. CARDIOVASCULAR: No chest pain or shortness of breath. RESPIRATORY: No cough, wheezing, or hemoptysis. GASTROINTESTINAL: No nausea, vomiting, diarrhea or constipation. GENITOURINARY: No dysuria, frequency, or change in urination. MUSCULOSKELETAL: +Right 4th toe swelling and pain. No neck or back pain. SKIN: No rash NEUROLOGIC: No headache, vertigo, loss of consciousness, or change in strength/ sensation. ENDOCRINE: No increased thirst. No abnormal weight change. HEMATOLOGIC/LYMPHATIC: No anemia, easy bleeding, or history of blood clots. ALLERGIC/IMMUNOLOGIC: No hives or skin allergy. 03/05/18 01:02 <Kayy Arcos - Last Filed: 03/05/18 01:03> *Physical Exam - Vital Signs Last Vital Signs Temp Pulse Resp BP Pulse Ox 97.6 F 76 18 128/74 99 03/05/18 00:22 03/05/18 00:22 03/05/18 00:22 03/05/18 00:22 03/05/18 00:22 <Kayy Arcos - Last Filed: 03/05/18 01:03> - Vital Signs Last Vital Signs Temp Pulse Resp BP Pulse Ox 97.6 F 76 18 128/74 99 03/05/18 00:22 03/05/18 00:22 03/05/18 00:22 03/05/18 00:22 03/05/18 00:22 - Physical Exam Comments: GENERAL: Awake, alert, and fully oriented, in no acute distress HEAD: No signs of trauma EXTREMITIES: R 4th toe with tenderness to palpation, swelling. No redness, warmth, skin lesions. Remainder of extremities with normal range of motion, no edema. No clubbing or cyanosis. No cords, erythema, or tenderness NEUROLOGICAL: Cranial nerves II through XII grossly intact. Normal speech. Motor and sensation intact. SKIN: Warm, Dry, normal turgor, no rashes or lesions noted. <Marisa Nuñez - Last Filed: 03/05/18 01:54> Medical Decision Making - Medical Decision Making 03/05/18 01:53 XR findings d/w patient. Toes were yoselin taped and a hard-soled shoe placed. Stable for DC and transfer back to [facility]. <Marisa Nuñez - Last Filed: 03/05/18 01:54> *DC/Admit/Observation/Transfer - Attestations Scribe Attestion: 03/05/18 01:02 Documentation prepared by Kayy Arcos, acting as medical director for Marisa Nuñez MD. <Kayy Arcos - Last Filed: 03/05/18 01:03> - Discharge Dispostion Decision to Admit order: No <Marisa Nuñez - Last Filed: 03/05/18 01:54> Diagnosis at time of Disposition: Toe fracture Qualifiers: Encounter type: initial encounter Toe: lesser toe Fracture type: closed Phalanx : proximal Fracture alignment: nondisplaced Laterality: right Qualified Code(s) : S92.514A - Nondisplaced fracture of proximal phalanx of right lesser toe(s), initial encounter for closed fracture - Discharge Dispostion Disposition: HOME Condition at time of disposition: Stable - Referrals Referrals: Stroe,Kelly, DO [Primary Care Provider] - - Patient Instructions Printed Discharge Instructions: DI for Toe Fracture - Post Discharge Activity
[2018-03-05] MEDS ORDERED: ACETAMINOPHEN 325 MG TABLET (FP) ONE (01:23)
[2018-03-05 02:11] VITALS: BP 128/76; PULSE 80; TEMP 99
== END 2018-03-05 02:12 | disposition home or self-care (01) ==
LOC: JER 00:17
DX: S92.514A Nondisplaced fracture of proximal phalanx of right lesser toe(s), initial encounter for closed fracture (principal); W22.8XXA Striking against or struck by other objects, initial encounter; Y93.89 Activity, other specified; Y92.238 Other place in hospital as the place of occurrence of the external cause; Y99.8 Other external cause status; F11.20 Opioid dependence, uncomplicated; F14.20 Cocaine dependence, uncomplicated; F12.20 Cannabis dependence, uncomplicated
CPT/HCPCS: 73660-TC-FY; 99282-25

== ENCOUNTER 2020-03-22 11:19 | Inpatient (IN) | payer BC ==
[2020-03-22 12:19] VITALS: BMI 23.6
[2020-03-22] MEDS ORDERED: MAGNESIUM CITRATE 300 ML BOTTLE PO PRN (15:02)
[2020-03-22] MEDS ORDERED: P-EPHED 60MG/TRIPROLIDI 2.5MG TABLET PO PRN (15:02)
[2020-03-22] MEDS ORDERED: MAGNESIUM HYDROX 2400MG/30ML ORAL SUSPENSION 30 ML CUP PO PRN (15:02)
[2020-03-22] MEDS ORDERED: ACETAMINOPHEN 325 MG TABLET (FP) PO PRN ×2 (15:02)
[2020-03-22] MEDS ORDERED: NICOTINE POLACRILEX 2 MG GUM BUC PRN (15:02)
[2020-03-22] MEDS ORDERED: BISMUTH SUBSALICYLATE 262 MG/15 ML BTL PO PRN (15:02)
[2020-03-22] MEDS ORDERED: MAG HYDROX/AL HYDROX/SIMETH 30 ML UNIT-DOSE CUP PO PRN (15:02)
[2020-03-22] MEDS ORDERED: IBUPROFEN 400 MG TABLET (FP) PO PRN (15:02)
[2020-03-22] MEDS ORDERED: MENTHOL/PHENOL 1 EACH UD MM PRN (15:02)
[2020-03-22] MEDS ORDERED: METHOCARBAMOL 500 MG TABLET PO PRN (15:02)
[2020-03-22] MEDS ORDERED: chlordiazePOXIDE HCL 25 MG CAPSULE PO PRN (15:05)
[2020-03-22] MEDS ORDERED: METHADONE HCL 10 MG TABLET (FOR DETOX USE ONLY) PO ONE (15:05)
[2020-03-22] MEDS ORDERED: cloNIDine HCL 0.1 MG TABLET PO PRN (15:05)
[2020-03-22] MEDS ORDERED: ALBUTEROL SO4 HFA INHALER IH PRN (15:06)
[2020-03-22] MEDS: ONDANSETRON *ODT* 4 MG TABLET SL PRN (16:06)
[2020-03-22] MEDS: chlordiazePOXIDE HCL 25 MG CAPSULE PO SCH ×2 (18:27→22:25)
[2020-03-22] MEDS: BUDESONIDE/FORMETEROL FUMARATE 80/4.5 mcg INHALER IH SCH (22:24)
[2020-03-22] MEDS: ABACAVIR/DOLUTEGRAVIR/LAMIVUDI (TRIUMEQ) TABLET -NF PO SCH (22:25)
[2020-03-22] MEDS: levETIRAcetam 500 MG TABLET (FP) PO SCH (22:25)
[2020-03-22] MEDS: THIAMINE HCL 100 MG TABLET (FP) PO SCH (22:25)
[2020-03-22] MEDS: MELATONIN 5 MG TABLETS PO SCH (22:26)
[2020-03-23] MEDS: chlordiazePOXIDE HCL 25 MG CAPSULE PO SCH ×4 (06:39→22:17)
[2020-03-23] MEDS ORDERED: METHADONE HCL 10 MG TABLET (FOR DETOX USE ONLY) ONE (09:03)
[2020-03-23] MEDS ORDERED: METHADONE HCL 5 MG TABLET (FOR DETOX USE ONLY) ONE (09:03)
[2020-03-23] MEDS ORDERED: METHADONE (DETOX) 20 MG, METHADONE (DETOX) 5 MG PO ONE (10:00)
[2020-03-23] MEDS: PRENATAL VITAMINS W/ FOLIC ACID TABLET (FP) PO SCH (10:29)
[2020-03-23] MEDS: levETIRAcetam 500 MG TABLET (FP) PO SCH ×2 (10:29→22:17)
[2020-03-23] MEDS: BUDESONIDE/FORMETEROL FUMARATE 80/4.5 mcg INHALER IH SCH ×2 (10:32→22:17)
[2020-03-23] MEDS: NICOTINE 21 MG/24 HOURS TOPICAL PATCH TD SCH (10:32)
[2020-03-23 11:35] LABS: POTASSIUM 3.8 mmol/L (3.5-5.1)
[2020-03-23 11:37] LABS: CALCIUM 8.9 mg/dL (8.5-10.1)
[2020-03-23 11:38] LABS: ALBUMIN 3.8 g/dl (3.4-5.0); BLOOD UREA NITROGEN 11.1 mg/dL (7-18)
[2020-03-23 11:41] LABS: CREATININE 0.9 mg/dL (0.55-1.3)
[2020-03-23 11:42] LABS: BILIRUBIN,TOTAL 0.3 mg/dL (0.2-1); TOT PROT 8.1 g/dl (6.4-8.2)
[2020-03-23 11:51] LABS: HEMATOCRIT 35.7 % (35.4-49); HEMOGLOBIN 12.2 GM/dL (11.7-16.9); MCHC 34.1 g/dl (32.0-35.9); MEAN CELL VOLUME 90.8 fl (80-96); MEAN PLT VOLUME 12.1 fl (7.5-11.1); PLATELET COUNT 261 K/MM3 (134-434); RBC 3.93 M/mm3 (4.00-5.60)
[2020-03-23 11:53] LABS: WHITE BLOOD COUNT 2.6 K/mm3 (4.0-10.0)
[2020-03-23] MEDS: THIAMINE HCL 100 MG TABLET (FP) PO SCH (22:17)
[2020-03-23] MEDS: QUEtiapine FUMARATE 100 MG TABLET (FP) PO SCH (22:17)
[2020-03-23] MEDS: ABACAVIR/DOLUTEGRAVIR/LAMIVUDI (TRIUMEQ) TABLET -NF PO SCH (22:18)
[2020-03-23] MEDS: MELATONIN 5 MG TABLETS PO SCH (22:18)
[2020-03-24] MEDS: chlordiazePOXIDE HCL 25 MG CAPSULE PO SCH ×4 (06:24→22:08)
[2020-03-24] MEDS ORDERED: METHADONE HCL 10 MG TABLET (FOR DETOX USE ONLY) PO ONE (10:00)
[2020-03-24] MEDS: BUDESONIDE/FORMETEROL FUMARATE 80/4.5 mcg INHALER IH SCH ×2 (11:21→22:08)
[2020-03-24] MEDS: levETIRAcetam 500 MG TABLET (FP) PO SCH ×2 (11:21→22:08)
[2020-03-24] MEDS: PRENATAL VITAMINS W/ FOLIC ACID TABLET (FP) PO SCH (11:21)
[2020-03-24] MEDS: NICOTINE 21 MG/24 HOURS TOPICAL PATCH TD SCH (11:21)
[2020-03-24] MEDS: SERTRALINE HCL 50 MG TABLET (FP) PO SCH (11:22)
[2020-03-24 11:23] LABS: HEMATOCRIT 40.3 % (35.4-49); HEMOGLOBIN 12.7 GM/dL (11.7-16.9); MCH 28.4 pg (25.7-33.7); MCHC 31.6 g/dl (32.0-35.9); MEAN CELL VOLUME 90.1 fl (80-96); MEAN PLT VOLUME 8.6 fl (7.5-11.1); PLATELET COUNT 149 K/MM3 (134-434); RBC 4.48 M/mm3 (4.00-5.60); RDW 13.3 % (11.9-15.9); WHITE BLOOD COUNT 2.9 K/mm3 (4.0-10.0)
[2020-03-24] MEDS ORDERED: MASKS NR ONE (17:27)
[2020-03-24] MEDS: QUEtiapine FUMARATE 100 MG TABLET (FP) PO SCH (22:08)
[2020-03-24] MEDS: MELATONIN 5 MG TABLETS PO SCH (22:08)
[2020-03-24] MEDS: THIAMINE HCL 100 MG TABLET (FP) PO SCH (22:08)
[2020-03-24] MEDS: ABACAVIR/DOLUTEGRAVIR/LAMIVUDI (TRIUMEQ) TABLET -NF PO SCH (22:08)
[2020-03-25] MEDS ORDERED: chlordiazePOXIDE HCL 10 MG CAPSULE PO PRN
[2020-03-25] MEDS: hydrOXYzine PAMOATE 25 MG CAPSULE (FP) PO PRN ×2 (01:19→22:11)
[2020-03-25] MEDS: chlordiazePOXIDE HCL 10 MG CAPSULE PO SCH ×4 (05:48→22:11)
[2020-03-25] MEDS ORDERED: METHADONE HCL 10 MG TABLET (FOR DETOX USE ONLY) ONE (09:09)
[2020-03-25] MEDS ORDERED: METHADONE HCL 5 MG TABLET (FOR DETOX USE ONLY) ONE (09:10)
[2020-03-25] MEDS ORDERED: METHADONE (DETOX) 10 MG, METHADONE (DETOX) 5 MG PO ONE (10:00)
[2020-03-25] MEDS: levETIRAcetam 500 MG TABLET (FP) PO SCH ×2 (10:29→22:11)
[2020-03-25] MEDS: PRENATAL VITAMINS W/ FOLIC ACID TABLET (FP) PO SCH (10:29)
[2020-03-25] MEDS: SERTRALINE HCL 50 MG TABLET (FP) PO SCH (10:29)
[2020-03-25] MEDS: NICOTINE 21 MG/24 HOURS TOPICAL PATCH TD SCH (10:30)
[2020-03-25] MEDS: BUDESONIDE/FORMETEROL FUMARATE 80/4.5 mcg INHALER IH SCH ×2 (10:30→22:12)
[2020-03-25] MEDS: QUEtiapine FUMARATE 100 MG TABLET (FP) PO SCH (22:11)
[2020-03-25] MEDS: THIAMINE HCL 100 MG TABLET (FP) PO SCH (22:11)
[2020-03-25] MEDS: MELATONIN 5 MG TABLETS PO SCH (22:12)
[2020-03-25] MEDS: ABACAVIR/DOLUTEGRAVIR/LAMIVUDI (TRIUMEQ) TABLET -NF PO SCH (22:12)
[2020-03-26] MEDS: chlordiazePOXIDE HCL 10 MG CAPSULE PO SCH ×2 (06:54→17:24)
[2020-03-26] MEDS: ONDANSETRON *ODT* 4 MG TABLET SL PRN (09:26)
[2020-03-26] MEDS ORDERED: METHADONE HCL 10 MG TABLET (FOR DETOX USE ONLY) PO ONE (10:00)
[2020-03-26] MEDS: levETIRAcetam 500 MG TABLET (FP) PO SCH ×2 (10:22→22:13)
[2020-03-26] MEDS: BUDESONIDE/FORMETEROL FUMARATE 80/4.5 mcg INHALER IH SCH ×2 (10:22→22:15)
[2020-03-26] MEDS: PRENATAL VITAMINS W/ FOLIC ACID TABLET (FP) PO SCH (10:22)
[2020-03-26] MEDS: SERTRALINE HCL 50 MG TABLET (FP) PO SCH (10:22)
[2020-03-26] MEDS: NICOTINE 21 MG/24 HOURS TOPICAL PATCH TD SCH (10:23)
[2020-03-26 16:59] VITALS: TEMP 97.3
[2020-03-26] MEDS: MELATONIN 5 MG TABLETS PO SCH (22:13)
[2020-03-26] MEDS: QUEtiapine FUMARATE 100 MG TABLET (FP) PO SCH (22:13)
[2020-03-26] MEDS: THIAMINE HCL 100 MG TABLET (FP) PO SCH (22:13)
[2020-03-26] MEDS: ABACAVIR/DOLUTEGRAVIR/LAMIVUDI (TRIUMEQ) TABLET -NF PO SCH (22:14)
[2020-03-27] MEDS ORDERED: chlordiazePOXIDE HCL 10 MG CAPSULE PO ONE (05:00)
[2020-03-27] MEDS ORDERED: METHADONE HCL 5 MG TABLET (FOR DETOX USE ONLY) PO ONE (06:00)
[2020-03-27 09:10] VITALS: BP 115/68; PULSE 84
[2020-03-27] MEDS: levETIRAcetam 500 MG TABLET (FP) PO SCH (09:41)
[2020-03-27] MEDS: NICOTINE 21 MG/24 HOURS TOPICAL PATCH TD SCH (09:41)
[2020-03-27] MEDS: BUDESONIDE/FORMETEROL FUMARATE 80/4.5 mcg INHALER IH SCH (09:41)
[2020-03-27] MEDS: SERTRALINE HCL 50 MG TABLET (FP) PO SCH (09:41)
[2020-03-27] MEDS: PRENATAL VITAMINS W/ FOLIC ACID TABLET (FP) PO SCH (09:41)
== END 2020-03-27 09:51 | disposition home or self-care (01) | DRG 773 ==
LOC: YASAS 11:19 → Y3N 14:47
PROVIDERS: ADMIT Allergy & Immunology; ATTEND Allergy & Immunology
PROC: HZ2ZZZZ Detoxification Services for Substance Abuse Treatment (ICD-10-PCS; principal; 2020-03-22)
DX: F11.23 Opioid dependence with withdrawal (principal); F10.230 Alcohol dependence with withdrawal, uncomplicated; F12.20 Cannabis dependence, uncomplicated; F17.210 Nicotine dependence, cigarettes, uncomplicated; F19.24 Other psychoactive substance dependence with psychoactive substance-induced mood disorder; F19.282 Other psychoactive substance dependence with psychoactive substance-induced sleep disorder; F31.70 Bipolar disorder, currently in remission, most recent episode unspecified; R73.09 Other abnormal glucose; J45.909 Unspecified asthma, uncomplicated; G40.909 Epilepsy, unspecified, not intractable, without status epilepticus; M54.5 Low back pain; G89.29 Other chronic pain; Z21 Asymptomatic human immunodeficiency virus [HIV] infection status; M17.0 Bilateral primary osteoarthritis of knee; Z91.013 Allergy to seafood
CPT/HCPCS: 36415; 80053; 80177; 82947; 85027; 86780; 93005; 93010; C9803; Q0162; U0003

== ENCOUNTER 2020-08-02 10:58 | Inpatient (IN) | payer BC ==
[2020-08-02 12:48] VITALS: BMI 22.1
[2020-08-02] MEDS ORDERED: cloNIDine HCL 0.1 MG TABLET PO PRN (12:48)
[2020-08-02] MEDS ORDERED: METHADONE HCL 10 MG TABLET (FOR DETOX USE ONLY) PO ONE (12:48)
[2020-08-02] MEDS ORDERED: NICOTINE POLACRILEX 2 MG GUM BUC PRN (12:50)
[2020-08-02] MEDS ORDERED: METHOCARBAMOL 500 MG TABLET PO PRN (12:50)
[2020-08-02] MEDS ORDERED: ONDANSETRON *ODT* 4 MG TABLET SL PRN (12:50)
[2020-08-02] MEDS ORDERED: MENTHOL/PHENOL 1 EACH UD MM PRN (12:50)
[2020-08-02] MEDS ORDERED: BISMUTH SUBSALICYLATE 524 MG/30 ML UD PO PRN (12:50)
[2020-08-02] MEDS ORDERED: ACETAMINOPHEN 325 MG TABLET (FP) PO PRN ×2 (12:50)
[2020-08-02] MEDS ORDERED: MAG HYDROX/AL HYDROX/SIMETH 30 ML UNIT-DOSE CUP PO PRN (12:50)
[2020-08-02] MEDS ORDERED: MAGNESIUM CITRATE 300 ML BOTTLE PO PRN (12:50)
[2020-08-02] MEDS ORDERED: MAGNESIUM HYDROX 2400MG/30ML ORAL SUSPENSION 30 ML CUP PO PRN (12:50)
[2020-08-02] MEDS: NICOTINE 7 MG/24 HOURS TOPICAL PATCH TD SCH (15:16)
[2020-08-02] MEDS: hydrOXYzine PAMOATE 25 MG CAPSULE (FP) PO SCH ×3 (15:17→22:22)
[2020-08-02] MEDS: PRENATAL VITAMINS W/ FOLIC ACID TABLET (FP) PO SCH (15:17)
[2020-08-02 17:13] LABS: HEMATOCRIT 33.5 % (35.4-49); HEMOGLOBIN 11.4 GM/dL (11.7-16.9); MEAN CELL VOLUME 88.4 fl (80-96); PLATELET COUNT 108 K/MM3 (134-434); RBC 3.79 M/mm3 (4.00-5.60); RDW 13.7 % (11.9-15.9); WHITE BLOOD COUNT 3.5 K/mm3 (4.0-10.0)
[2020-08-02 17:19] LABS: CALCIUM 9.2 mg/dL (8.5-10.1)
[2020-08-02 17:20] LABS: ALBUMIN 3.8 g/dl (3.4-5.0); BLOOD UREA NITROGEN 14.6 mg/dL (7-18)
[2020-08-02 17:23] LABS: CREATININE 1.1 mg/dL (0.55-1.3)
[2020-08-02 17:24] LABS: BILIRUBIN,TOTAL 0.2 mg/dL (0.2-1)
[2020-08-02 17:25] LABS: TOT PROT 8.3 g/dl (6.4-8.2)
[2020-08-02] MEDS: MELATONIN 5 MG TABLETS PO SCH (22:22)
[2020-08-02] MEDS: THIAMINE HCL 100 MG TABLET (FP) PO SCH (22:22)
[2020-08-03] MEDS: hydrOXYzine PAMOATE 25 MG CAPSULE (FP) PO SCH ×5 (06:37→23:00)
[2020-08-03] MEDS ORDERED: ALBUTEROL SO4 HFA INHALER IH PRN (08:33)
[2020-08-03] MEDS ORDERED: METHADONE HCL 10 MG TABLET (FOR DETOX USE ONLY) ONE (08:34)
[2020-08-03] MEDS ORDERED: METHADONE HCL 5 MG TABLET (FOR DETOX USE ONLY) ONE (08:34)
[2020-08-03] MEDS ORDERED: METHADONE (DETOX) 20 MG, METHADONE (DETOX) 5 MG PO ONE (10:00)
[2020-08-03] MEDS: levETIRAcetam 500 MG TABLET (FP) PO SCH ×2 (10:35→23:00)
[2020-08-03] MEDS: NICOTINE 7 MG/24 HOURS TOPICAL PATCH TD SCH (10:35)
[2020-08-03] MEDS: PRENATAL VITAMINS W/ FOLIC ACID TABLET (FP) PO SCH (10:35)
[2020-08-03] MEDS: BICTEGRAV/EMTRICIT/TENOFOV (BIKTARVY) 50-200-25 MG TABLET PO SCH (11:22)
[2020-08-03] MEDS: IBUPROFEN 400 MG TABLET (FP) PO PRN (17:52)
[2020-08-03] MEDS: MELATONIN 5 MG TABLETS PO SCH (23:00)
[2020-08-03] MEDS: THIAMINE HCL 100 MG TABLET (FP) PO SCH (23:00)
[2020-08-04] MEDS: hydrOXYzine PAMOATE 25 MG CAPSULE (FP) PO SCH ×2 (06:32→10:17)
[2020-08-04] MEDS ORDERED: METHADONE HCL 10 MG TABLET (FOR DETOX USE ONLY) PO ONE (10:00)
[2020-08-04] MEDS: levETIRAcetam 500 MG TABLET (FP) PO SCH (10:17)
[2020-08-04] MEDS: PRENATAL VITAMINS W/ FOLIC ACID TABLET (FP) PO SCH (10:17)
[2020-08-04] MEDS: BICTEGRAV/EMTRICIT/TENOFOV (BIKTARVY) 50-200-25 MG TABLET PO SCH (10:17)
[2020-08-04] MEDS: NICOTINE 7 MG/24 HOURS TOPICAL PATCH TD SCH (10:18)
[2020-08-04] MEDS ORDERED: hydrOXYzine PAMOATE 25 MG CAPSULE (FP) PO PRN (12:00)
[2020-08-05] MEDS: levETIRAcetam 500 MG TABLET (FP) PO SCH ×3 (01:12→22:14)
[2020-08-05] MEDS: THIAMINE HCL 100 MG TABLET (FP) PO SCH ×2 (01:12→22:14)
[2020-08-05] MEDS: MELATONIN 5 MG TABLETS PO SCH ×2 (01:12→22:14)
[2020-08-05] MEDS ORDERED: METHADONE (DETOX) 10 MG, METHADONE (DETOX) 5 MG PO ONE (10:00)
[2020-08-05] MEDS ORDERED: METHADONE HCL 5 MG TABLET (FOR DETOX USE ONLY) ONE (10:01)
[2020-08-05] MEDS ORDERED: METHADONE HCL 10 MG TABLET (FOR DETOX USE ONLY) ONE (10:01)
[2020-08-05] MEDS: BICTEGRAV/EMTRICIT/TENOFOV (BIKTARVY) 50-200-25 MG TABLET PO SCH (11:12)
[2020-08-05] MEDS: NICOTINE 7 MG/24 HOURS TOPICAL PATCH TD SCH (11:13)
[2020-08-05] MEDS: PRENATAL VITAMINS W/ FOLIC ACID TABLET (FP) PO SCH (11:13)
[2020-08-05] MEDS ORDERED: MASKS NR ONE (22:16)
[2020-08-06] MEDS ORDERED: METHADONE HCL 10 MG TABLET (FOR DETOX USE ONLY) PO ONE (10:00)
[2020-08-06] MEDS: levETIRAcetam 500 MG TABLET (FP) PO SCH ×2 (10:51→22:38)
[2020-08-06] MEDS: PRENATAL VITAMINS W/ FOLIC ACID TABLET (FP) PO SCH (10:51)
[2020-08-06] MEDS: BICTEGRAV/EMTRICIT/TENOFOV (BIKTARVY) 50-200-25 MG TABLET PO SCH (10:54)
[2020-08-06] MEDS: NICOTINE 7 MG/24 HOURS TOPICAL PATCH TD SCH (10:54)
[2020-08-06] MEDS ORDERED: TRIMETHOBENZAMIDE HCL 200MG/2ML INJ IM ONE (11:08)
[2020-08-06] MEDS: IBUPROFEN 400 MG TABLET (FP) PO PRN (14:55)
[2020-08-06] MEDS: MELATONIN 5 MG TABLETS PO SCH (22:38)
[2020-08-06] MEDS: THIAMINE HCL 100 MG TABLET (FP) PO SCH (22:38)
[2020-08-07] MEDS ORDERED: METHADONE HCL 5 MG TABLET (FOR DETOX USE ONLY) PO ONE (06:00)
[2020-08-07 09:00] VITALS: BP 117/69; PULSE 68; TEMP 97.4
[2020-08-07] MEDS: levETIRAcetam 500 MG TABLET (FP) PO SCH (09:45)
[2020-08-07] MEDS: BICTEGRAV/EMTRICIT/TENOFOV (BIKTARVY) 50-200-25 MG TABLET PO SCH (09:45)
[2020-08-07] MEDS: PRENATAL VITAMINS W/ FOLIC ACID TABLET (FP) PO SCH (09:45)
[2020-08-07] MEDS: NICOTINE 7 MG/24 HOURS TOPICAL PATCH TD SCH (09:45)
== END 2020-08-07 11:43 | disposition home or self-care (01) | DRG 773 ==
LOC: YASAS 10:58 → Y6N 13:02 → Y3N 08-03 14:28
PROVIDERS: ADMIT Allergy & Immunology; ATTEND Allergy & Immunology
PROC: HZ2ZZZZ Detoxification Services for Substance Abuse Treatment (ICD-10-PCS; principal; 2020-08-02)
DX: F11.23 Opioid dependence with withdrawal (principal); F10.230 Alcohol dependence with withdrawal, uncomplicated; F17.210 Nicotine dependence, cigarettes, uncomplicated; F19.24 Other psychoactive substance dependence with psychoactive substance-induced mood disorder; F31.9 Bipolar disorder, unspecified; F90.9 Attention-deficit hyperactivity disorder, unspecified type; Z21 Asymptomatic human immunodeficiency virus [HIV] infection status; D61.818 Other pancytopenia; D64.9 Anemia, unspecified; G40.909 Epilepsy, unspecified, not intractable, without status epilepticus; J45.909 Unspecified asthma, uncomplicated; M17.0 Bilateral primary osteoarthritis of knee; M54.5 Low back pain; G89.29 Other chronic pain; Z98.890 Other specified postprocedural states; Z90.81 Acquired absence of spleen
CPT/HCPCS: 36415; 80053; 85027; 86780; C9803; J0735; Q0162; U0003; U0005

== ENCOUNTER 2021-07-19 10:31 | Inpatient (IN) | payer BC ==
[2021-07-19] MEDS ORDERED: BISMUTH SUBSALICYLATE 262 MG/15 ML BTL PO PRN (10:55)
[2021-07-19] MEDS ORDERED: LOPERAMIDE HCL 2 MG CAPSULE PO PRN (10:55)
[2021-07-19] MEDS ORDERED: cloNIDine HCL 0.1 MG TABLET PO PRN (10:55)
[2021-07-19] MEDS ORDERED: MAGNESIUM HYDROX 2400MG/30ML ORAL SUSPENSION 30 ML CUP PO PRN (10:55)
[2021-07-19] MEDS ORDERED: methaDONE HCL 10 MG TABLET (FOR DETOX USE ONLY) PO ONE (10:55)
[2021-07-19] MEDS ORDERED: chlordiazePOXIDE HCL 25 MG CAPSULE PO PRN (10:55)
[2021-07-19] MEDS ORDERED: MAGNESIUM CITRATE 300 ML BOTTLE PO PRN (10:55)
[2021-07-19] MEDS ORDERED: IBUPROFEN 400 MG TABLET (FP) PO PRN (10:55)
[2021-07-19] MEDS ORDERED: ACETAMINOPHEN 325 MG TABLET (FP) PO PRN ×2 (10:55)
[2021-07-19] MEDS ORDERED: MAG HYDROX/AL HYDROX/SIMETH 30 ML UNIT-DOSE CUP PO PRN (10:55)
[2021-07-19] MEDS ORDERED: NICOTINE 10 MG CARTRIDGE (INHALER) IH PRN (10:55)
[2021-07-19] MEDS ORDERED: METHOCARBAMOL 500 MG TABLET PO PRN (10:55)
[2021-07-19] MEDS ORDERED: BENZOCAINE/MENTHOL (CHLORASEPTIC ) LOZENGE MM PRN (10:55)
[2021-07-19] MEDS ORDERED: DICYCLOMINE HCL 10 MG CAPSULE PO PRN (10:55)
[2021-07-19] MEDS: chlordiazePOXIDE HCL 25 MG CAPSULE PO SCH ×3 (13:26→22:34)
[2021-07-19] MEDS: PRENATAL VITAMINS W/ FOLIC ACID TABLET (FP) PO SCH (13:26)
[2021-07-19] MEDS: NICOTINE 7 MG/24 HOURS TOPICAL PATCH TD SCH (13:30)
[2021-07-19] MEDS: hydrOXYzine PAMOATE 25 MG CAPSULE (FP) PO SCH ×3 (14:14→22:34)
[2021-07-19 17:33] LABS: HEMATOCRIT 32.4 % (35.4-49); HEMOGLOBIN 10.6 GM/dL (11.7-16.9); MCH 29.7 pg (25.7-33.7); MCHC 32.6 g/dl (32.0-35.9); MEAN CELL VOLUME 90.9 fl (80-96); MEAN PLT VOLUME 10.3 fl (7.5-11.1); PLATELET COUNT 85 10^3/uL (134-434); RBC 3.57 M/mm3 (4.00-5.60); RDW 14.5 % (11.9-15.9); WHITE BLOOD COUNT 2.9 K/mm3 (4.0-10.0)
[2021-07-19 17:38] LABS: CALCIUM 9.1 mg/dL (8.5-10.1)
[2021-07-19 17:39] LABS: ALBUMIN 3.6 g/dl (3.4-5.0); BLOOD UREA NITROGEN 15.6 mg/dL (7-18)
[2021-07-19 17:43] LABS: CREATININE 1.1 mg/dL (0.55-1.3)
[2021-07-19 17:44] LABS: TOT PROT 8.2 g/dl (6.4-8.2)
[2021-07-19 17:45] LABS: BILIRUBIN,TOTAL 0.4 mg/dL (0.2-1)
[2021-07-19 19:18] VITALS: BMI 22.4
[2021-07-19] MEDS: MELATONIN 5 MG TABLETS PO SCH (22:34)
[2021-07-19] MEDS: THIAMINE HCL 100 MG TABLET (FP) PO SCH (22:35)
[2021-07-20] MEDS: hydrOXYzine PAMOATE 25 MG CAPSULE (FP) PO SCH ×5 (05:54→22:59)
[2021-07-20] MEDS: chlordiazePOXIDE HCL 25 MG CAPSULE PO SCH ×4 (05:54→22:59)
[2021-07-20] MEDS ORDERED: methaDONE HCL 10 MG TABLET (FOR DETOX USE ONLY) ONE (08:48)
[2021-07-20] MEDS: PRENATAL VITAMINS W/ FOLIC ACID TABLET (FP) PO SCH (10:38)
[2021-07-20] MEDS: NICOTINE 7 MG/24 HOURS TOPICAL PATCH TD SCH (10:40)
[2021-07-20] MEDS ORDERED: FLU VACC QS2021-22(6MOS UP)/PF 60 MCG/0.5 ML SYRINGE IM ONE (12:24)
[2021-07-20] MEDS: MELATONIN 5 MG TABLETS PO SCH (22:58)
[2021-07-20] MEDS: THIAMINE HCL 100 MG TABLET (FP) PO SCH (22:59)
[2021-07-21] MEDS: hydrOXYzine PAMOATE 25 MG CAPSULE (FP) PO SCH ×5 (07:51→22:51)
[2021-07-21] MEDS: chlordiazePOXIDE HCL 25 MG CAPSULE PO SCH ×4 (07:51→22:51)
[2021-07-21] MEDS ORDERED: methaDONE HCL 10 MG TABLET (FOR DETOX USE ONLY) PO ONE (10:00)
[2021-07-21] MEDS: PRENATAL VITAMINS W/ FOLIC ACID TABLET (FP) PO SCH (10:27)
[2021-07-21] MEDS: NICOTINE 7 MG/24 HOURS TOPICAL PATCH TD SCH (10:27)
[2021-07-21] MEDS: ONDANSETRON *ODT* 4 MG TABLET SL PRN (11:36)
[2021-07-21 13:35] LABS: HEMATOCRIT 35.8 % (35.4-49); MCH 29.8 pg (25.7-33.7); MCHC 33.5 g/dl (32.0-35.9); MEAN CELL VOLUME 88.9 fl (80-96); PLATELET COUNT 68 10^3/uL (134-434); RBC 4.02 M/mm3 (4.00-5.60); RDW 14.1 % (11.9-15.9); WHITE BLOOD COUNT 2.7 K/mm3 (4.0-10.0)
[2021-07-21] MEDS: THIAMINE HCL 100 MG TABLET (FP) PO SCH (22:51)
[2021-07-21] MEDS: MELATONIN 5 MG TABLETS PO SCH (22:51)
[2021-07-22] MEDS ORDERED: chlordiazePOXIDE HCL 10 MG CAPSULE PO PRN
[2021-07-22 00:07] LABS: SARS-CoV-2 NAA Not Detected (Not Detected)
[2021-07-22] MEDS: hydrOXYzine PAMOATE 25 MG CAPSULE (FP) PO SCH ×5 (07:29→23:10)
[2021-07-22] MEDS: chlordiazePOXIDE HCL 10 MG CAPSULE PO SCH ×4 (07:29→23:10)
[2021-07-22] MEDS ORDERED: methaDONE HCL 10 MG TABLET (FOR DETOX USE ONLY) ONE (09:13)
[2021-07-22] MEDS: PRENATAL VITAMINS W/ FOLIC ACID TABLET (FP) PO SCH (10:59)
[2021-07-22] MEDS: NICOTINE 7 MG/24 HOURS TOPICAL PATCH TD SCH (11:01)
[2021-07-22] MEDS ORDERED: TRIMETHOBENZAMIDE HCL 200MG/2ML INJ IM PRN ×2 (16:04)
[2021-07-22] MEDS: MELATONIN 5 MG TABLETS PO SCH (23:09)
[2021-07-22] MEDS: THIAMINE HCL 100 MG TABLET (FP) PO SCH (23:10)
[2021-07-23] MEDS: chlordiazePOXIDE HCL 10 MG CAPSULE PO SCH ×2 (06:48→18:37)
[2021-07-23] MEDS: hydrOXYzine PAMOATE 25 MG CAPSULE (FP) PO SCH ×4 (06:48→18:37)
[2021-07-23] MEDS ORDERED: methaDONE HCL 10 MG TABLET (FOR DETOX USE ONLY) PO ONE (10:00)
[2021-07-23] MEDS: PRENATAL VITAMINS W/ FOLIC ACID TABLET (FP) PO SCH (10:31)
[2021-07-23] MEDS: NICOTINE 7 MG/24 HOURS TOPICAL PATCH TD SCH (10:33)
[2021-07-23] MEDS: ONDANSETRON *ODT* 4 MG TABLET SL PRN (10:33)
[2021-07-23 20:01] VITALS: BP 126/89; PULSE 95; TEMP 97.7
[2021-07-24] MEDS ORDERED: chlordiazePOXIDE HCL 10 MG CAPSULE PO ONE (05:00)
== END 2021-07-23 20:01 | disposition left against medical advice (07) | DRG 770 ==
LOC: YASAS 10:31 → Y3N 12:46
PROVIDERS: ADMIT Allergy & Immunology; ATTEND Allergy & Immunology
PROC: HZ2ZZZZ Detoxification Services for Substance Abuse Treatment (ICD-10-PCS; principal; 2021-07-19)
DX: F10.230 Alcohol dependence with withdrawal, uncomplicated (principal); F11.23 Opioid dependence with withdrawal; F12.20 Cannabis dependence, uncomplicated; F17.210 Nicotine dependence, cigarettes, uncomplicated; F19.24 Other psychoactive substance dependence with psychoactive substance-induced mood disorder; Z21 Asymptomatic human immunodeficiency virus [HIV] infection status; D69.6 Thrombocytopenia, unspecified; D72.819 Decreased white blood cell count, unspecified; J44.9 Chronic obstructive pulmonary disease, unspecified; G40.909 Epilepsy, unspecified, not intractable, without status epilepticus; M54.50 Low back pain, unspecified; G89.29 Other chronic pain; Z86.59 Personal history of other mental and behavioral disorders; Z91.013 Allergy to seafood; Z91.19 Patient's noncompliance with other medical treatment and regimen
CPT/HCPCS: 36415; 80053; 85027; 86780; 87811; C9803-CS; Q0162; U0003; U0005